=== PATIENT | male | born 1950 | race Caucasian/White ===

== ENCOUNTER → 2018-09-23 | Outpatient (CLI) | payer BC ==
[~2018-09-23] MED LIST: REGADENOSON 0.4 MG/5 ML SYRINGE ONE
== END | disposition home or self-care (01) ==
LOC: CFH 07:37
PROVIDERS: ATTEND Internal Medicine Cardiovascular Disease
DX: I42.9 Cardiomyopathy, unspecified (principal); I10 Essential (primary) hypertension
CPT/HCPCS: 78452; 93017; A9502; J2785

== ENCOUNTER 2018-10-06 06:08 | Day surgery (SDC) | payer BC ==
[~2018-10-06] VITALS: Ht 182.9 cm; Wt 111.4 kg
[2018-10-06 06:46] VITALS: BP 143/93
[2018-10-06] MEDS ORDERED: RIVA20TA PO (06:46)
[2018-10-06] MEDS ORDERED: METO-93 PO (06:46)
[2018-10-06] MEDS ORDERED: DOXA2TAB9 PO (06:46)
[2018-10-06] MEDS ORDERED: DIGO125T PO (06:46)
[2018-10-06] MEDS ORDERED: VALS320T2 PO (06:46)
[2018-10-06] MEDS ORDERED: AMLO-150 PO (06:46)
[2018-10-06] MEDS ORDERED: FINA5TAB4 PO (06:46)
[2018-10-06 07:19] LABS: ANION GAP 7 mmol/L (5-15); CALCIUM 10.2 mg/dL (8.5-10.1); CHLORIDE 110 mmol/L (98-107); CREATININE 1.17 mg/dL (0.7-1.3)
[2018-10-06] MEDS ORDERED: FENTANYL PF 250 MCG/5ML ONE (07:51)
[2018-10-06] MEDS ORDERED: MIDAZOLAM 1 MG/ML, 5ML ONE (07:51)
== END 2018-10-06 09:25 | disposition home or self-care (01) ==
LOC: CACL 06:08
PROVIDERS: ATTEND Internal Medicine Cardiovascular Disease
DX: I48.91 Unspecified atrial fibrillation (principal); I10 Essential (primary) hypertension; I42.9 Cardiomyopathy, unspecified
CPT/HCPCS: 36415; 80048; 80162; 92960; J3010; J2250

== ENCOUNTER → 2018-11-10 | Outpatient (CLI) | payer BC ==
[~2018-11-10] MED LIST changes: +AMLO-150 PO; +DIGO125T PO; +DOXA2TAB9 PO; +FINA5TAB4 PO; +METO-93 PO; -REGADENOSON 0.4 MG/5 ML SYRINGE ONE; +RIVA20TA PO; +VALS320T2 PO
== END | disposition home or self-care (01) ==
LOC: CVU 15:19
PROVIDERS: ATTEND Internal Medicine Cardiovascular Disease
DX: I08.8 Other rheumatic multiple valve diseases (principal); I10 Essential (primary) hypertension; I25.2 Old myocardial infarction
CPT/HCPCS: 0399T; 93306

== ENCOUNTER → 2019-12-29 | Outpatient (CLI) | payer BC ==
[~2019-12-29] MED LIST changes: -DIGO125T PO; +DIGO125T85 PO
== END | disposition home or self-care (01) ==
LOC: CVU 06:52
PROVIDERS: ATTEND Physician Assistant Medical
DX: I34.0 Nonrheumatic mitral (valve) insufficiency (principal); N28.0 Ischemia and infarction of kidney; I10 Essential (primary) hypertension; I42.9 Cardiomyopathy, unspecified
CPT/HCPCS: 93306; 93356; 93975

== ENCOUNTER 2021-01-20 10:20 | Outpatient (CLI) | payer BC | END 2021-01-20 23:59 | disposition home or self-care (01) | LOC: CVU 10:20 | PROVIDERS: ATTEND Registered Nurse | DX: I08.3 Combined rheumatic disorders of mitral, aortic and tricuspid valves (principal); I42.9 Cardiomyopathy, unspecified | CPT/HCPCS: 93306 ==

== ENCOUNTER 2021-01-30 10:53 | Day surgery (SDC) | payer BC ==
[~2021-01-30] VITALS: Ht 182.9 cm; Wt 113.6 kg
[2021-01-30 11:40] VITALS: BP 128/75
== END 2021-01-30 12:48 | disposition home or self-care (01) ==
LOC: CACL 10:53
PROVIDERS: ATTEND Internal Medicine Cardiovascular Disease
DX: I48.91 Unspecified atrial fibrillation (principal); I10 Essential (primary) hypertension; I42.8 Other cardiomyopathies; E66.9 Obesity, unspecified; G47.30 Sleep apnea, unspecified; Z79.01 Long term (current) use of anticoagulants; Z79.899 Other long term (current) drug therapy; Z68.34 Body mass index [BMI] 34.0-34.9, adult; Z98.890 Other specified postprocedural states